=== PATIENT | male | born 1970 | race African-American/Black ===

== ENCOUNTER 2021-10-09 11:35 | Inpatient (IN) | payer OTHER ==
[2021-10-09 13:29] VITALS: BMI 33.0
[2021-10-09] MEDS ORDERED: DICYCLOMINE HCL 10 MG CAPSULE PO PRN (15:30)
[2021-10-09] MEDS ORDERED: IBUPROFEN 400 MG TABLET (FP) PO PRN (15:30)
[2021-10-09] MEDS ORDERED: LOPERAMIDE HCL 2 MG CAPSULE PO PRN (15:30)
[2021-10-09] MEDS ORDERED: MAGNESIUM HYDROX 2400MG/30ML ORAL SUSPENSION 30 ML CUP PO PRN (15:30)
[2021-10-09] MEDS ORDERED: IBUPROFEN 600 MG TABLET (FP) PO PRN (15:30)
[2021-10-09] MEDS ORDERED: ACETAMINOPHEN 325 MG TABLET (FP) PO PRN ×2 (15:30)
[2021-10-09] MEDS ORDERED: MAGNESIUM CITRATE 300 ML BOTTLE PO PRN (15:30)
[2021-10-09] MEDS ORDERED: BENZOCAINE/MENTHOL (CHLORASEPTIC ) LOZENGE MM PRN (15:30)
[2021-10-09] MEDS ORDERED: MAG HYDROX/AL HYDROX/SIMETH 30 ML UNIT-DOSE CUP PO PRN (15:30)
[2021-10-09] MEDS ORDERED: chlordiazePOXIDE HCL 25 MG CAPSULE PO PRN (15:30)
[2021-10-09] MEDS ORDERED: NICOTINE 10 MG CARTRIDGE (INHALER) IH PRN (15:30)
[2021-10-09] MEDS ORDERED: BISMUTH SUBSALICYLATE 524 MG/30 ML PO PRN (15:30)
[2021-10-09] MEDS ORDERED: ONDANSETRON *ODT* 4 MG TABLET SL PRN (15:30)
[2021-10-09] MEDS: NICOTINE 21 MG/24 HOURS TOPICAL PATCH TD SCH (16:07)
[2021-10-09] MEDS: PRENATAL VITAMINS W/ FOLIC ACID TABLET (FP) PO SCH (16:07)
[2021-10-09] MEDS: hydrOXYzine PAMOATE 25 MG CAPSULE (FP) PO SCH ×2 (17:44→23:03)
[2021-10-09] MEDS: chlordiazePOXIDE HCL 25 MG CAPSULE PO SCH ×2 (17:44→23:03)
[2021-10-09] MEDS: MELATONIN 5 MG TABLETS PO SCH (23:03)
[2021-10-09] MEDS: THIAMINE HCL 100 MG TABLET (FP) PO SCH (23:04)
[2021-10-10] MEDS: hydrOXYzine PAMOATE 25 MG CAPSULE (FP) PO SCH ×5 (06:59→23:12)
[2021-10-10] MEDS: chlordiazePOXIDE HCL 25 MG CAPSULE PO SCH ×4 (06:59→23:12)
[2021-10-10 10:03] LABS: HEMATOCRIT 40.1 % (35.4-49); HEMOGLOBIN 13.4 GM/dL (11.7-16.9); MCH 29.2 pg (25.7-33.7); MCHC 33.5 g/dl (32.0-35.9); MEAN CELL VOLUME 87.3 fl (80-96); MEAN PLT VOLUME 7.9 fl (7.5-11.1); PLATELET COUNT 258 10^3/uL (134-434); RBC 4.59 M/mm3 (4.00-5.60); RDW 14.4 % (11.9-15.9); WHITE BLOOD COUNT 6.2 K/mm3 (4.0-10.0)
[2021-10-10] MEDS: PRENATAL VITAMINS W/ FOLIC ACID TABLET (FP) PO SCH (10:21)
[2021-10-10] MEDS: NICOTINE 21 MG/24 HOURS TOPICAL PATCH TD SCH (10:22)
[2021-10-10 12:49] LABS: ALBUMIN 3.1 g/dl (3.4-5.0); BLOOD UREA NITROGEN 11.4 mg/dL (7-18); CALCIUM 8.3 mg/dL (8.5-10.1)
[2021-10-10 12:52] LABS: CREATININE 0.9 mg/dL (0.55-1.3)
[2021-10-10 12:54] LABS: BILIRUBIN,TOTAL 0.1 mg/dL (0.2-1); TOT PROT 6.7 g/dl (6.4-8.2)
[2021-10-10] MEDS: METHOCARBAMOL 500 MG TABLET PO PRN (18:15)
[2021-10-10] MEDS: THIAMINE HCL 100 MG TABLET (FP) PO SCH (23:12)
[2021-10-10] MEDS: MELATONIN 5 MG TABLETS PO SCH (23:12)
[2021-10-11] MEDS: hydrOXYzine PAMOATE 25 MG CAPSULE (FP) PO SCH ×5 (05:18→22:12)
[2021-10-11] MEDS: chlordiazePOXIDE HCL 25 MG CAPSULE PO SCH ×4 (05:18→22:11)
[2021-10-11] MEDS: NICOTINE 21 MG/24 HOURS TOPICAL PATCH TD SCH (10:41)
[2021-10-11] MEDS: METHOCARBAMOL 500 MG TABLET PO PRN (10:42)
[2021-10-11] MEDS: PRENATAL VITAMINS W/ FOLIC ACID TABLET (FP) PO SCH (10:42)
[2021-10-11] MEDS: MELATONIN 5 MG TABLETS PO SCH (22:12)
[2021-10-11] MEDS: THIAMINE HCL 100 MG TABLET (FP) PO SCH (22:15)
[2021-10-12] MEDS ORDERED: chlordiazePOXIDE HCL 10 MG CAPSULE PO PRN
[2021-10-12] MEDS: hydrOXYzine PAMOATE 25 MG CAPSULE (FP) PO SCH ×5 (06:07→22:20)
[2021-10-12] MEDS: chlordiazePOXIDE HCL 10 MG CAPSULE PO SCH ×4 (06:07→22:20)
[2021-10-12] MEDS: NICOTINE 21 MG/24 HOURS TOPICAL PATCH TD SCH (10:20)
[2021-10-12] MEDS: PRENATAL VITAMINS W/ FOLIC ACID TABLET (FP) PO SCH (10:20)
[2021-10-12] MEDS: METHOCARBAMOL 500 MG TABLET PO PRN (10:20)
[2021-10-12] MEDS: THIAMINE HCL 100 MG TABLET (FP) PO SCH (22:20)
[2021-10-12] MEDS: MELATONIN 5 MG TABLETS PO SCH (22:21)
[2021-10-13] MEDS: chlordiazePOXIDE HCL 10 MG CAPSULE PO SCH ×2 (05:37→17:43)
[2021-10-13] MEDS: hydrOXYzine PAMOATE 25 MG CAPSULE (FP) PO SCH ×5 (05:38→22:25)
[2021-10-13] MEDS: PRENATAL VITAMINS W/ FOLIC ACID TABLET (FP) PO SCH (10:30)
[2021-10-13] MEDS: NICOTINE 21 MG/24 HOURS TOPICAL PATCH TD SCH (10:30)
[2021-10-13] MEDS: THIAMINE HCL 100 MG TABLET (FP) PO SCH (22:25)
[2021-10-13] MEDS: MELATONIN 5 MG TABLETS PO SCH (22:25)
[2021-10-14 04:55] VITALS: RESP 18
[2021-10-14] MEDS ORDERED: chlordiazePOXIDE HCL 10 MG CAPSULE PO ONE (05:00)
[2021-10-14] MEDS: hydrOXYzine PAMOATE 25 MG CAPSULE (FP) PO SCH ×2 (05:59→11:11)
[2021-10-14 09:17] VITALS: BP 140/87; PULSE 73; TEMP 97.7
[2021-10-14] MEDS: PRENATAL VITAMINS W/ FOLIC ACID TABLET (FP) PO SCH (11:11)
[2021-10-14] MEDS: NICOTINE 21 MG/24 HOURS TOPICAL PATCH TD SCH (11:12)
== END 2021-10-14 11:30 | disposition other institution (70) | DRG 774 ==
LOC: YASAS 11:35 → Y6N 15:27
PROVIDERS: ADMIT Allergy & Immunology; ATTEND Surgery
PROC: HZ2ZZZZ Detoxification Services for Substance Abuse Treatment (ICD-10-PCS; principal; 2021-10-09)
DX: F10.230 Alcohol dependence with withdrawal, uncomplicated (principal); F14.20 Cocaine dependence, uncomplicated; F12.20 Cannabis dependence, uncomplicated; F17.210 Nicotine dependence, cigarettes, uncomplicated; F19.282 Other psychoactive substance dependence with psychoactive substance-induced sleep disorder; F19.24 Other psychoactive substance dependence with psychoactive substance-induced mood disorder; F41.8 Other specified anxiety disorders
CPT/HCPCS: 36415; 80053; 85027; 86780; C9803-CS; U0003; U0005

== ENCOUNTER 2021-10-14 11:50 | Inpatient (IN) | payer OTHER ==
[~2021-10-14 11:50] MED LIST: ACETAMINOPHEN 325 MG TABLET (FP) PO PRN; LOPERAMIDE HCL 2 MG CAPSULE PO PRN; MAG HYDROX/AL HYDROX/SIMETH 30 ML UNIT-DOSE CUP PO PRN; MAGNESIUM CITRATE 300 ML BOTTLE PO PRN; MAGNESIUM HYDROX 2400MG/30ML ORAL SUSPENSION 30 ML CUP PO PRN; NICOTINE 10 MG CARTRIDGE (INHALER) IH PRN; NICOTINE POLACRILEX 4 MG GUM BUC PRN; P-EPHED 60MG/TRIPROLIDI 2.5MG TABLET PO PRN; guaiFENesin 200 MG/10 ML 10 ML UNIT-DOSE CUPS PO PRN
[2021-10-14] MEDS: MELATONIN 5 MG TABLETS PO SCH (21:34)
[2021-10-14] MEDS: THIAMINE HCL 100 MG TABLET (FP) PO SCH (21:34)
[2021-10-14] MEDS: IBUPROFEN 400 MG TABLET (FP) PO PRN (23:01)
[2021-10-15] MEDS: NICOTINE 21 MG/24 HOURS TOPICAL PATCH TD SCH (09:36)
[2021-10-15] MEDS: PRENATAL VITAMINS W/ FOLIC ACID TABLET (FP) PO SCH (09:36)
[2021-10-15] MEDS: hydrOXYzine PAMOATE 25 MG CAPSULE (FP) PO PRN (09:37)
[2021-10-15] MEDS ORDERED: PNEUMOC 20-VAL CONJ-DIP CRM/PF 0.5 ML SYRINGE IM ONE (12:00)
[2021-10-15] MEDS: IBUPROFEN 400 MG TABLET (FP) PO PRN (17:30)
[2021-10-15] MEDS: THIAMINE HCL 100 MG TABLET (FP) PO SCH (21:15)
[2021-10-15] MEDS: MELATONIN 5 MG TABLETS PO SCH (21:15)
[2021-10-16] MEDS: PRENATAL VITAMINS W/ FOLIC ACID TABLET (FP) PO SCH (10:22)
[2021-10-16] MEDS: NICOTINE 21 MG/24 HOURS TOPICAL PATCH TD SCH (10:23)
[2021-10-16] MEDS: hydrOXYzine PAMOATE 25 MG CAPSULE (FP) PO PRN (10:24)
[2021-10-16] MEDS: SUVOREXANT 10 MG TABLET PO PRN (21:06)
[2021-10-16] MEDS: THIAMINE HCL 100 MG TABLET (FP) PO SCH (21:06)
[2021-10-17] MEDS: hydrOXYzine PAMOATE 25 MG CAPSULE (FP) PO PRN ×2 (06:44→21:25)
[2021-10-17] MEDS: PRENATAL VITAMINS W/ FOLIC ACID TABLET (FP) PO SCH (09:40)
[2021-10-17] MEDS: NICOTINE 21 MG/24 HOURS TOPICAL PATCH TD SCH (09:41)
[2021-10-17] MEDS: NAPROXEN 500 MG TABLET PO SCH ×2 (12:40→21:26)
[2021-10-17] MEDS: SUVOREXANT 10 MG TABLET PO PRN (21:26)
[2021-10-17] MEDS: THIAMINE HCL 100 MG TABLET (FP) PO SCH (21:26)
[2021-10-18 06:33] VITALS: RESP 18
[2021-10-18] MEDS: NICOTINE 21 MG/24 HOURS TOPICAL PATCH TD SCH (09:31)
[2021-10-18] MEDS: PRENATAL VITAMINS W/ FOLIC ACID TABLET (FP) PO SCH (09:31)
[2021-10-18] MEDS: NAPROXEN 500 MG TABLET PO SCH ×2 (09:31→21:12)
[2021-10-18] MEDS: hydrOXYzine PAMOATE 25 MG CAPSULE (FP) PO PRN (21:12)
[2021-10-18] MEDS: THIAMINE HCL 100 MG TABLET (FP) PO SCH (21:12)
[2021-10-18] MEDS: SUVOREXANT 10 MG TABLET PO PRN (21:13)
[2021-10-18] MEDS ORDERED: SUVOREXANT 10 MG TABLET PO PRN (22:00)
[2021-10-19 07:18] VITALS: BP 119/76; PULSE 62; TEMP 97.2
== END 2021-10-19 09:20 | disposition left against medical advice (07) | DRG 770 ==
LOC: YASAS 11:50 → Y3E 11:51
PROVIDERS: ADMIT Allergy & Immunology; ATTEND Psychiatry & Neurology Pain Medicine
PROC: HZ2ZZZZ Detoxification Services for Substance Abuse Treatment (ICD-10-PCS; principal; 2021-10-14)
DX: F10.230 Alcohol dependence with withdrawal, uncomplicated (principal); F14.20 Cocaine dependence, uncomplicated; F12.20 Cannabis dependence, uncomplicated; F17.210 Nicotine dependence, cigarettes, uncomplicated; F19.24 Other psychoactive substance dependence with psychoactive substance-induced mood disorder; F19.282 Other psychoactive substance dependence with psychoactive substance-induced sleep disorder; R60.0 Localized edema; Z56.0 Unemployment, unspecified
CPT/HCPCS: 36415; 86757

== ENCOUNTER 2023-01-16 09:30 | Inpatient (IN) | payer OTHER ==
[2023-01-16] MEDS ORDERED: hydrOXYzine PAMOATE 25 MG CAPSULE (FP) PO PRN (12:50)
[2023-01-16] MEDS ORDERED: NALOXONE HCL (KLOXXADO) 8 MG SPRAY NS PRN (12:50)
[2023-01-16] MEDS ORDERED: COLLOIDAL OATMEAL 1 BAR EACH TP PRN (12:50)
[2023-01-16] MEDS ORDERED: AMMONIUM LACTATE 12% LOTION 225 GM BOTTLE TP PRN (12:50)
[2023-01-16] MEDS ORDERED: NICOTINE POLACRILEX 4 MG GUM BUC PRN (12:50)
[2023-01-16] MEDS ORDERED: NALOXONE HCL 0.4 MG/ML VIAL IM PRN (12:50)
[2023-01-16] MEDS ORDERED: BENZONATATE 200 MG CAPSULE PO PRN (12:50)
[2023-01-16] MEDS ORDERED: MAG HYDROX/AL HYDROX/SIMETH 30 ML UNIT-DOSE CUP PO PRN (12:50)
[2023-01-16] MEDS ORDERED: guaiFENesin 600 MG TABLET.ER (FP) PO PRN (12:50)
[2023-01-16] MEDS ORDERED: LOPERAMIDE HCL 2 MG CAPSULE PO PRN (12:50)
[2023-01-16] MEDS ORDERED: BENZOCAINE/MENTHOL (CHLORASEPTIC ) LOZENGE MM PRN (12:50)
[2023-01-16] MEDS ORDERED: MAGNESIUM HYDROX 2400MG/30ML ORAL SUSPENSION 30 ML CUP PO PRN (12:50)
[2023-01-16] MEDS ORDERED: POLYETHYLENE GLYCOL (HEALTHYLAX) 3350 17 GM PACKET PO PRN (12:50)
[2023-01-16] MEDS ORDERED: TUBERCULIN PPD 5 TU/0.1ML SYRINGE (IN PATIENT USE ONLY) ID ONE (16:55)
[2023-01-16 19:55] LABS: PH,URINE 5.5 (5.0-8.0); URINE APPEARANCE CLEAR; URINE BILIRUBIN NEGATIVE (NEGATIVE); URINE COLOR YELLOW; URINE GLUCOSE (UA) NEGATIVE (NEGATIVE); URINE KETONE TRACE (NEGATIVE); URINE LEUK ESTERASE NEGATIVE (NEGATIVE); URINE NITRITE NEGATIVE (NEGATIVE); URINE PROTEIN TRACE (NEGATIVE)
[2023-01-16] MEDS: THIAMINE HCL 100 MG TABLET (FP) PO SCH (21:06)
[2023-01-16] MEDS: MELATONIN 5 MG TABLETS PO SCH (21:06)
[2023-01-17] MEDS: LITHIUM CARBONATE 300 MG CAPSULE PO SCH (10:02)
[2023-01-17] MEDS: PRENATAL VITAMINS W/ FOLIC ACID TABLET (FP) PO SCH (10:02)
[2023-01-17] MEDS ORDERED: FLU VACCINE (FLULAVAL) PF 60 MCG/0.5 ML SYRINGE 2023-2024 IM ONE (12:00)
[2023-01-17] MEDS ORDERED: PNEUMOC 20-VAL CONJ-DIP CRM/PF 0.5 ML SYRINGE IM ONE (12:00)
[2023-01-17] MEDS: QUEtiapine FUMARATE 100 MG TABLET (FP) PO SCH (21:07)
[2023-01-17] MEDS: MELATONIN 5 MG TABLETS PO SCH (21:07)
[2023-01-17] MEDS: THIAMINE HCL 100 MG TABLET (FP) PO SCH (21:07)
[2023-01-17] MEDS: MIRTAZAPINE 30 MG TABLET PO SCH (21:07)
[2023-01-18] MEDS: LITHIUM CARBONATE 300 MG CAPSULE PO SCH (10:19)
[2023-01-18] MEDS: PRENATAL VITAMINS W/ FOLIC ACID TABLET (FP) PO SCH (10:19)
[2023-01-18 12:37] LABS: CHLORIDE 108 mmol/L (98-107); POTASSIUM 4.3 mmol/L (3.5-5.1); SODIUM 141 mmol/L (136-145)
[2023-01-18 12:37] LABS: HEMATOCRIT 41.7 % (35.4-49); HEMOGLOBIN 13.6 GM/dL (11.7-16.9); MCH 28.1 pg (25.7-33.7); MCHC 32.5 g/dl (32.0-35.9); MEAN CELL VOLUME 86.2 fl (80-96); MEAN PLT VOLUME 8.5 fl (7.5-11.1); PLATELET COUNT 250 10^3/uL (134-434); RBC 4.84 M/mm3 (4.00-5.60); RDW 14.2 % (11.9-15.9); WHITE BLOOD COUNT 7.3 K/mm3 (4.0-10.0)
[2023-01-18 12:39] LABS: CALCIUM 8.4 mg/dL (8.5-10.1)
[2023-01-18 12:40] LABS: ALBUMIN 3.1 g/dl (3.4-5.0); ANION GAP 7 mmol/L (4-13); CO2 26 mmol/L (21-32); GLUCOSE,RANDOM 127 mg/dL (74-106)
[2023-01-18 12:43] LABS: SGOT/AST 16 U/L (15-37); SGPT/ALT 19 U/L (13-61)
[2023-01-18 12:44] LABS: BILIRUBIN,TOTAL 0.5 mg/dL (0.2-1)
[2023-01-18 12:45] LABS: TOT PROT 7.1 g/dl (6.4-8.2)
[2023-01-18 12:46] LABS: ALK PHOS 73 U/L (45-117)
[2023-01-18 13:06] LABS: SYPHILIS W/ RPR CONF NON-REACTIVE (NONREACTIVE)
[2023-01-18] MEDS: THIAMINE HCL 100 MG TABLET (FP) PO SCH (21:03)
[2023-01-18] MEDS: MELATONIN 5 MG TABLETS PO SCH (21:03)
[2023-01-18] MEDS: QUEtiapine FUMARATE 100 MG TABLET (FP) PO SCH (21:03)
[2023-01-18] MEDS: MIRTAZAPINE 30 MG TABLET PO SCH (21:03)
[2023-01-19] MEDS: PRENATAL VITAMINS W/ FOLIC ACID TABLET (FP) PO SCH (09:01)
[2023-01-19] MEDS: IBUPROFEN 600 MG TABLET (FP) PO PRN (09:01)
[2023-01-19] MEDS: LITHIUM CARBONATE 300 MG CAPSULE PO SCH (09:01)
[2023-01-19] MEDS ORDERED: ACETAMINOPHEN 325 MG TABLET (FP) PO PRN (14:14)
[2023-01-19] MEDS: BACLOFEN 10 MG TABLET (FP) PO SCH ×2 (14:50→21:04)
[2023-01-19] MEDS: LIDOCAINE 5% TOPICAL PATCH TP SCH (14:50)
[2023-01-19] MEDS: MELATONIN 5 MG TABLETS PO SCH (21:04)
[2023-01-19] MEDS: THIAMINE HCL 100 MG TABLET (FP) PO SCH (21:04)
[2023-01-19] MEDS: MIRTAZAPINE 30 MG TABLET PO SCH (21:04)
[2023-01-19] MEDS: QUEtiapine FUMARATE 100 MG TABLET (FP) PO SCH (21:04)
[2023-01-19] MEDS: LIDOCAINE PATCH REMOVAL MC SCH (21:05)
[2023-01-20] MEDS: BACLOFEN 10 MG TABLET (FP) PO SCH ×3 (06:43→21:22)
[2023-01-20] MEDS: IBUPROFEN 600 MG TABLET (FP) PO PRN (06:44)
[2023-01-20] MEDS: LIDOCAINE 5% TOPICAL PATCH TP SCH (09:51)
[2023-01-20] MEDS: LITHIUM CARBONATE 300 MG CAPSULE PO SCH (09:51)
[2023-01-20] MEDS: PRENATAL VITAMINS W/ FOLIC ACID TABLET (FP) PO SCH (09:51)
[2023-01-20] MEDS: MELATONIN 5 MG TABLETS PO SCH (21:22)
[2023-01-20] MEDS: QUEtiapine FUMARATE 100 MG TABLET (FP) PO SCH (21:22)
[2023-01-20] MEDS: THIAMINE HCL 100 MG TABLET (FP) PO SCH (21:22)
[2023-01-20] MEDS: MIRTAZAPINE 30 MG TABLET PO SCH (21:22)
[2023-01-20] MEDS: LIDOCAINE PATCH REMOVAL MC SCH (21:23)
[2023-01-21] MEDS: BACLOFEN 10 MG TABLET (FP) PO SCH ×3 (06:38→21:00)
[2023-01-21] MEDS: LIDOCAINE 5% TOPICAL PATCH TP SCH (10:15)
[2023-01-21] MEDS: PRENATAL VITAMINS W/ FOLIC ACID TABLET (FP) PO SCH (10:15)
[2023-01-21] MEDS: LITHIUM CARBONATE 300 MG CAPSULE PO SCH (10:15)
[2023-01-21] MEDS: THIAMINE HCL 100 MG TABLET (FP) PO SCH (21:00)
[2023-01-21] MEDS: MIRTAZAPINE 30 MG TABLET PO SCH (21:00)
[2023-01-21] MEDS: MELATONIN 5 MG TABLETS PO SCH (21:00)
[2023-01-21] MEDS: QUEtiapine FUMARATE 100 MG TABLET (FP) PO SCH (21:00)
[2023-01-21] MEDS: LIDOCAINE PATCH REMOVAL MC SCH (21:01)
[2023-01-22] MEDS: BACLOFEN 10 MG TABLET (FP) PO SCH ×3 (06:19→21:10)
[2023-01-22] MEDS: PRENATAL VITAMINS W/ FOLIC ACID TABLET (FP) PO SCH (10:06)
[2023-01-22] MEDS: LIDOCAINE 5% TOPICAL PATCH TP SCH (10:08)
[2023-01-22] MEDS: LITHIUM CARBONATE 300 MG CAPSULE PO SCH (10:08)
[2023-01-22] MEDS: NICOTINE 21 MG/24 HOURS TOPICAL PATCH TD SCH (12:17)
[2023-01-22] MEDS: QUEtiapine FUMARATE 100 MG TABLET (FP) PO SCH (21:09)
[2023-01-22] MEDS: MIRTAZAPINE 30 MG TABLET PO SCH (21:09)
[2023-01-22] MEDS: THIAMINE HCL 100 MG TABLET (FP) PO SCH (21:09)
[2023-01-22] MEDS: MELATONIN 5 MG TABLETS PO SCH (21:09)
[2023-01-22] MEDS: LIDOCAINE PATCH REMOVAL MC SCH (21:10)
[2023-01-23] MEDS: BACLOFEN 10 MG TABLET (FP) PO SCH ×4 (05:28→21:00)
[2023-01-23] MEDS: NICOTINE 21 MG/24 HOURS TOPICAL PATCH TD SCH (10:27)
[2023-01-23] MEDS: PRENATAL VITAMINS W/ FOLIC ACID TABLET (FP) PO SCH (10:27)
[2023-01-23] MEDS: LITHIUM CARBONATE 300 MG CAPSULE PO SCH (10:27)
[2023-01-23] MEDS: LIDOCAINE 5% TOPICAL PATCH TP SCH (10:28)
[2023-01-23] MEDS: QUEtiapine FUMARATE 100 MG TABLET (FP) PO SCH (21:00)
[2023-01-23] MEDS: MELATONIN 5 MG TABLETS PO SCH (21:00)
[2023-01-23] MEDS: MIRTAZAPINE 30 MG TABLET PO SCH (21:00)
[2023-01-23] MEDS: THIAMINE HCL 100 MG TABLET (FP) PO SCH (21:00)
[2023-01-23] MEDS: LIDOCAINE PATCH REMOVAL MC SCH (21:01)
[2023-01-24] MEDS: BACLOFEN 10 MG TABLET (FP) PO SCH ×3 (06:07→21:31)
[2023-01-24] MEDS: NICOTINE 21 MG/24 HOURS TOPICAL PATCH TD SCH (10:35)
[2023-01-24] MEDS: LITHIUM CARBONATE 300 MG CAPSULE PO SCH (10:35)
[2023-01-24] MEDS: LIDOCAINE 5% TOPICAL PATCH TP SCH (10:36)
[2023-01-24] MEDS: PRENATAL VITAMINS W/ FOLIC ACID TABLET (FP) PO SCH (10:36)
[2023-01-24] MEDS: QUEtiapine FUMARATE 100 MG TABLET (FP) PO SCH (21:31)
[2023-01-24] MEDS: THIAMINE HCL 100 MG TABLET (FP) PO SCH (21:31)
[2023-01-24] MEDS: MELATONIN 5 MG TABLETS PO SCH (21:31)
[2023-01-24] MEDS: MIRTAZAPINE 30 MG TABLET PO SCH (21:31)
[2023-01-24] MEDS: LIDOCAINE PATCH REMOVAL MC SCH (21:31)
[2023-01-25] MEDS: BACLOFEN 10 MG TABLET (FP) PO SCH ×3 (06:36→21:14)
[2023-01-25] MEDS: LIDOCAINE 5% TOPICAL PATCH TP SCH (10:34)
[2023-01-25] MEDS: NICOTINE 21 MG/24 HOURS TOPICAL PATCH TD SCH (10:35)
[2023-01-25] MEDS: PRENATAL VITAMINS W/ FOLIC ACID TABLET (FP) PO SCH (10:35)
[2023-01-25] MEDS: LITHIUM CARBONATE 300 MG CAPSULE PO SCH (10:36)
[2023-01-25] MEDS: MIRTAZAPINE 30 MG TABLET PO SCH (21:13)
[2023-01-25] MEDS: QUEtiapine FUMARATE 100 MG TABLET (FP) PO SCH (21:14)
[2023-01-25] MEDS: MELATONIN 5 MG TABLETS PO SCH (21:14)
[2023-01-25] MEDS: THIAMINE HCL 100 MG TABLET (FP) PO SCH (21:14)
[2023-01-26] MEDS: BACLOFEN 10 MG TABLET (FP) PO SCH ×3 (06:13→21:16)
[2023-01-26] MEDS: LITHIUM CARBONATE 300 MG CAPSULE PO SCH (09:54)
[2023-01-26] MEDS: PRENATAL VITAMINS W/ FOLIC ACID TABLET (FP) PO SCH (09:54)
[2023-01-26] MEDS: NICOTINE 21 MG/24 HOURS TOPICAL PATCH TD SCH (09:55)
[2023-01-26] MEDS: LIDOCAINE 5% TOPICAL PATCH TP SCH (09:55)
[2023-01-26] MEDS: IBUPROFEN 600 MG TABLET (FP) PO PRN ×2 (12:34→21:16)
[2023-01-26] MEDS: THIAMINE HCL 100 MG TABLET (FP) PO SCH (21:16)
[2023-01-26] MEDS: MIRTAZAPINE 30 MG TABLET PO SCH (21:16)
[2023-01-26] MEDS: MELATONIN 5 MG TABLETS PO SCH (21:16)
[2023-01-26] MEDS: QUEtiapine FUMARATE 100 MG TABLET (FP) PO SCH (21:16)
[2023-01-26] MEDS: LIDOCAINE PATCH REMOVAL MC SCH ×2 (21:49)
[2023-01-27] MEDS: IBUPROFEN 600 MG TABLET (FP) PO PRN ×3 (06:23→18:59)
[2023-01-27] MEDS: BACLOFEN 10 MG TABLET (FP) PO SCH ×3 (06:23→21:03)
[2023-01-27] MEDS: PRENATAL VITAMINS W/ FOLIC ACID TABLET (FP) PO SCH (10:42)
[2023-01-27] MEDS: NICOTINE 21 MG/24 HOURS TOPICAL PATCH TD SCH (10:42)
[2023-01-27] MEDS: LITHIUM CARBONATE 300 MG CAPSULE PO SCH (10:43)
[2023-01-27] MEDS: LIDOCAINE 5% TOPICAL PATCH TP SCH (10:43)
[2023-01-27] MEDS: QUEtiapine FUMARATE 100 MG TABLET (FP) PO SCH (21:03)
[2023-01-27] MEDS: MELATONIN 5 MG TABLETS PO SCH (21:03)
[2023-01-27] MEDS: THIAMINE HCL 100 MG TABLET (FP) PO SCH (21:03)
[2023-01-27] MEDS: MIRTAZAPINE 30 MG TABLET PO SCH (21:03)
[2023-01-27] MEDS: LIDOCAINE PATCH REMOVAL MC SCH (21:04)
[2023-01-28] MEDS: IBUPROFEN 600 MG TABLET (FP) PO PRN ×3 (06:11→18:52)
[2023-01-28] MEDS: BACLOFEN 10 MG TABLET (FP) PO SCH ×3 (06:11→21:29)
[2023-01-28] MEDS: PRENATAL VITAMINS W/ FOLIC ACID TABLET (FP) PO SCH (09:48)
[2023-01-28] MEDS: LITHIUM CARBONATE 300 MG CAPSULE PO SCH (09:48)
[2023-01-28] MEDS: NICOTINE 21 MG/24 HOURS TOPICAL PATCH TD SCH (09:48)
[2023-01-28] MEDS: LIDOCAINE 5% TOPICAL PATCH TP SCH (09:49)
[2023-01-28] MEDS ORDERED: SODIUM CHLORIDE NASAL SPRAY 44 ML BOTTLE NS PRN (15:48)
[2023-01-28] MEDS: AMOX TR/POT CLAV 875MG/125MG TABLETS (FP) PO SCH (16:31)
[2023-01-28] MEDS: LIDOCAINE PATCH REMOVAL MC SCH (21:29)
[2023-01-28] MEDS: MELATONIN 5 MG TABLETS PO SCH (21:29)
[2023-01-28] MEDS: MIRTAZAPINE 30 MG TABLET PO SCH (21:29)
[2023-01-28] MEDS: QUEtiapine FUMARATE 100 MG TABLET (FP) PO SCH (21:29)
[2023-01-28] MEDS: THIAMINE HCL 100 MG TABLET (FP) PO SCH (21:29)
[2023-01-29] MEDS: BACLOFEN 10 MG TABLET (FP) PO SCH ×3 (06:33→21:15)
[2023-01-29] MEDS: IBUPROFEN 600 MG TABLET (FP) PO PRN ×3 (06:34→18:33)
[2023-01-29] MEDS: AMOX TR/POT CLAV 875MG/125MG TABLETS (FP) PO SCH ×2 (07:06→17:16)
[2023-01-29] MEDS: PRENATAL VITAMINS W/ FOLIC ACID TABLET (FP) PO SCH (10:23)
[2023-01-29] MEDS: LITHIUM CARBONATE 300 MG CAPSULE PO SCH (10:23)
[2023-01-29] MEDS: NICOTINE 21 MG/24 HOURS TOPICAL PATCH TD SCH (10:23)
[2023-01-29] MEDS: LIDOCAINE 5% TOPICAL PATCH TP SCH (10:23)
[2023-01-29] MEDS: QUEtiapine FUMARATE 100 MG TABLET (FP) PO SCH (21:15)
[2023-01-29] MEDS: THIAMINE HCL 100 MG TABLET (FP) PO SCH (21:15)
[2023-01-29] MEDS: MIRTAZAPINE 30 MG TABLET PO SCH (21:15)
[2023-01-29] MEDS: MELATONIN 5 MG TABLETS PO SCH (21:15)
[2023-01-29] MEDS: LIDOCAINE PATCH REMOVAL MC SCH (21:16)
[2023-01-30] MEDS: BACLOFEN 10 MG TABLET (FP) PO SCH ×3 (06:16→21:17)
[2023-01-30] MEDS: IBUPROFEN 600 MG TABLET (FP) PO PRN ×3 (06:16→17:20)
[2023-01-30] MEDS: AMOX TR/POT CLAV 875MG/125MG TABLETS (FP) PO SCH ×2 (07:05→17:19)
[2023-01-30] MEDS: NICOTINE 21 MG/24 HOURS TOPICAL PATCH TD SCH (09:04)
[2023-01-30] MEDS: LITHIUM CARBONATE 300 MG CAPSULE PO SCH (09:04)
[2023-01-30] MEDS: PRENATAL VITAMINS W/ FOLIC ACID TABLET (FP) PO SCH (09:04)
[2023-01-30] MEDS: LIDOCAINE 5% TOPICAL PATCH TP SCH (09:05)
[2023-01-30] MEDS: ACETAMINOPHEN 325 MG TABLET (FP) PO PRN (12:11)
[2023-01-30] MEDS: QUEtiapine FUMARATE 100 MG TABLET (FP) PO SCH (21:17)
[2023-01-30] MEDS: MELATONIN 5 MG TABLETS PO SCH (21:17)
[2023-01-30] MEDS: MIRTAZAPINE 30 MG TABLET PO SCH (21:17)
[2023-01-30] MEDS: THIAMINE HCL 100 MG TABLET (FP) PO SCH (21:17)
[2023-01-30] MEDS: LIDOCAINE PATCH REMOVAL MC SCH (21:18)
[2023-01-31] MEDS: IBUPROFEN 600 MG TABLET (FP) PO PRN ×2 (05:58→18:02)
[2023-01-31] MEDS: BACLOFEN 10 MG TABLET (FP) PO SCH ×3 (05:59→21:51)
[2023-01-31] MEDS: AMOX TR/POT CLAV 875MG/125MG TABLETS (FP) PO SCH ×2 (07:01→17:57)
[2023-01-31] MEDS: PRENATAL VITAMINS W/ FOLIC ACID TABLET (FP) PO SCH (09:47)
[2023-01-31] MEDS: LIDOCAINE 5% TOPICAL PATCH TP SCH (09:47)
[2023-01-31] MEDS: NICOTINE 21 MG/24 HOURS TOPICAL PATCH TD SCH (09:47)
[2023-01-31] MEDS: LITHIUM CARBONATE 300 MG CAPSULE PO SCH (09:47)
[2023-01-31] MEDS: ACETAMINOPHEN 325 MG TABLET (FP) PO PRN (13:22)
[2023-01-31] MEDS: LIDOCAINE PATCH REMOVAL MC SCH (21:25)
[2023-01-31] MEDS: MIRTAZAPINE 30 MG TABLET PO SCH (21:25)
[2023-01-31] MEDS: MELATONIN 5 MG TABLETS PO SCH (21:26)
[2023-01-31] MEDS: QUEtiapine FUMARATE 100 MG TABLET (FP) PO SCH (21:26)
[2023-01-31] MEDS: THIAMINE HCL 100 MG TABLET (FP) PO SCH (21:26)
[2023-02-01] MEDS: IBUPROFEN 400 MG TABLET (FP) PO PRN (06:33)
[2023-02-01] MEDS: BACLOFEN 10 MG TABLET (FP) PO SCH ×3 (06:33→21:08)
[2023-02-01] MEDS: AMOX TR/POT CLAV 875MG/125MG TABLETS (FP) PO SCH ×2 (07:06→16:32)
[2023-02-01] MEDS: NICOTINE 21 MG/24 HOURS TOPICAL PATCH TD SCH (09:54)
[2023-02-01] MEDS: LIDOCAINE 5% TOPICAL PATCH TP SCH (09:54)
[2023-02-01] MEDS: LITHIUM CARBONATE 300 MG CAPSULE PO SCH (09:54)
[2023-02-01] MEDS: PRENATAL VITAMINS W/ FOLIC ACID TABLET (FP) PO SCH (09:54)
[2023-02-01] MEDS: IBUPROFEN 600 MG TABLET (FP) PO PRN ×2 (13:01→21:08)
[2023-02-01] MEDS: THIAMINE HCL 100 MG TABLET (FP) PO SCH (21:08)
[2023-02-01] MEDS: MIRTAZAPINE 30 MG TABLET PO SCH (21:08)
[2023-02-01] MEDS: MELATONIN 5 MG TABLETS PO SCH (21:08)
[2023-02-01] MEDS: QUEtiapine FUMARATE 100 MG TABLET (FP) PO SCH (21:08)
[2023-02-01] MEDS: LIDOCAINE PATCH REMOVAL MC SCH (21:28)
[2023-02-02] MEDS: BACLOFEN 10 MG TABLET (FP) PO SCH ×3 (06:31→21:28)
[2023-02-02] MEDS: AMOX TR/POT CLAV 875MG/125MG TABLETS (FP) PO SCH ×2 (07:05→16:31)
[2023-02-02] MEDS: LITHIUM CARBONATE 300 MG CAPSULE PO SCH (09:49)
[2023-02-02] MEDS: IBUPROFEN 600 MG TABLET (FP) PO PRN ×2 (09:49→16:27)
[2023-02-02] MEDS: PRENATAL VITAMINS W/ FOLIC ACID TABLET (FP) PO SCH (09:49)
[2023-02-02] MEDS: LIDOCAINE 5% TOPICAL PATCH TP SCH (09:50)
[2023-02-02] MEDS: NICOTINE 21 MG/24 HOURS TOPICAL PATCH TD SCH (09:50)
[2023-02-02] MEDS: QUEtiapine FUMARATE 100 MG TABLET (FP) PO SCH (21:28)
[2023-02-02] MEDS: MIRTAZAPINE 30 MG TABLET PO SCH (21:28)
[2023-02-02] MEDS: MELATONIN 5 MG TABLETS PO SCH (21:29)
[2023-02-02] MEDS: THIAMINE HCL 100 MG TABLET (FP) PO SCH (21:29)
[2023-02-02] MEDS: IBUPROFEN 400 MG TABLET (FP) PO PRN (21:30)
[2023-02-02] MEDS: LIDOCAINE PATCH REMOVAL MC SCH (21:50)
[2023-02-03] MEDS: IBUPROFEN 600 MG TABLET (FP) PO PRN ×3 (06:25→21:22)
[2023-02-03] MEDS: BACLOFEN 10 MG TABLET (FP) PO SCH ×3 (06:25→21:22)
[2023-02-03] MEDS: AMOX TR/POT CLAV 875MG/125MG TABLETS (FP) PO SCH ×2 (07:02→17:05)
[2023-02-03] MEDS: NICOTINE 21 MG/24 HOURS TOPICAL PATCH TD SCH (10:11)
[2023-02-03] MEDS: LIDOCAINE 5% TOPICAL PATCH TP SCH (10:12)
[2023-02-03] MEDS: LITHIUM CARBONATE 300 MG CAPSULE PO SCH (10:12)
[2023-02-03] MEDS: PRENATAL VITAMINS W/ FOLIC ACID TABLET (FP) PO SCH (10:12)
[2023-02-03] MEDS: MELATONIN 5 MG TABLETS PO SCH (21:21)
[2023-02-03] MEDS: QUEtiapine FUMARATE 100 MG TABLET (FP) PO SCH (21:22)
[2023-02-03] MEDS: THIAMINE HCL 100 MG TABLET (FP) PO SCH (21:22)
[2023-02-03] MEDS: MIRTAZAPINE 30 MG TABLET PO SCH (21:22)
[2023-02-03] MEDS: LIDOCAINE PATCH REMOVAL MC SCH (21:23)
[2023-02-04] MEDS: BACLOFEN 10 MG TABLET (FP) PO SCH ×3 (06:53→21:14)
[2023-02-04] MEDS: IBUPROFEN 600 MG TABLET (FP) PO PRN ×3 (06:53→19:06)
[2023-02-04] MEDS: AMOX TR/POT CLAV 875MG/125MG TABLETS (FP) PO SCH ×2 (07:12→16:30)
[2023-02-04] MEDS: LITHIUM CARBONATE 300 MG CAPSULE PO SCH (09:55)
[2023-02-04] MEDS: LIDOCAINE 5% TOPICAL PATCH TP SCH (09:55)
[2023-02-04] MEDS: NICOTINE 21 MG/24 HOURS TOPICAL PATCH TD SCH (09:55)
[2023-02-04] MEDS: PRENATAL VITAMINS W/ FOLIC ACID TABLET (FP) PO SCH (09:55)
[2023-02-04] MEDS: LIDOCAINE PATCH REMOVAL MC SCH (21:14)
[2023-02-04] MEDS: THIAMINE HCL 100 MG TABLET (FP) PO SCH (21:14)
[2023-02-04] MEDS: MELATONIN 5 MG TABLETS PO SCH (21:14)
[2023-02-04] MEDS: MIRTAZAPINE 30 MG TABLET PO SCH (21:14)
[2023-02-04] MEDS: QUEtiapine FUMARATE 100 MG TABLET (FP) PO SCH (21:14)
[2023-02-05] MEDS: BACLOFEN 10 MG TABLET (FP) PO SCH ×3 (06:17→21:27)
[2023-02-05] MEDS: IBUPROFEN 600 MG TABLET (FP) PO PRN ×3 (06:18→18:07)
[2023-02-05] MEDS: AMOX TR/POT CLAV 875MG/125MG TABLETS (FP) PO SCH ×2 (07:01→18:08)
[2023-02-05] MEDS: LITHIUM CARBONATE 300 MG CAPSULE PO SCH (09:45)
[2023-02-05] MEDS: LIDOCAINE 5% TOPICAL PATCH TP SCH (09:45)
[2023-02-05] MEDS: PRENATAL VITAMINS W/ FOLIC ACID TABLET (FP) PO SCH (09:45)
[2023-02-05] MEDS: NICOTINE 21 MG/24 HOURS TOPICAL PATCH TD SCH (09:45)
[2023-02-05] MEDS: QUEtiapine FUMARATE 100 MG TABLET (FP) PO SCH (21:26)
[2023-02-05] MEDS: MELATONIN 5 MG TABLETS PO SCH (21:26)
[2023-02-05] MEDS: THIAMINE HCL 100 MG TABLET (FP) PO SCH (21:26)
[2023-02-05] MEDS: LIDOCAINE PATCH REMOVAL MC SCH (21:27)
[2023-02-05] MEDS: MIRTAZAPINE 30 MG TABLET PO SCH (21:27)
[2023-02-06] MEDS: BACLOFEN 10 MG TABLET (FP) PO SCH ×3 (06:23→21:11)
[2023-02-06] MEDS: IBUPROFEN 600 MG TABLET (FP) PO PRN ×3 (06:23→18:14)
[2023-02-06] MEDS: AMOX TR/POT CLAV 875MG/125MG TABLETS (FP) PO SCH ×2 (07:09→17:17)
[2023-02-06] MEDS: PRENATAL VITAMINS W/ FOLIC ACID TABLET (FP) PO SCH (10:43)
[2023-02-06] MEDS: NICOTINE 21 MG/24 HOURS TOPICAL PATCH TD SCH (10:43)
[2023-02-06] MEDS: LITHIUM CARBONATE 300 MG CAPSULE PO SCH (10:43)
[2023-02-06] MEDS: LIDOCAINE 5% TOPICAL PATCH TP SCH (10:44)
[2023-02-06] MEDS: MELATONIN 5 MG TABLETS PO SCH (21:11)
[2023-02-06] MEDS: THIAMINE HCL 100 MG TABLET (FP) PO SCH (21:11)
[2023-02-06] MEDS: LIDOCAINE PATCH REMOVAL MC SCH (21:11)
[2023-02-06] MEDS: MIRTAZAPINE 30 MG TABLET PO SCH (21:11)
[2023-02-06] MEDS: QUEtiapine FUMARATE 100 MG TABLET (FP) PO SCH (21:11)
[2023-02-07] MEDS: IBUPROFEN 600 MG TABLET (FP) PO PRN ×2 (00:26→06:18)
[2023-02-07] MEDS: BACLOFEN 10 MG TABLET (FP) PO SCH ×3 (06:17→21:49)
[2023-02-07 07:06] VITALS: TEMP 97.7
[2023-02-07] MEDS: AMOX TR/POT CLAV 875MG/125MG TABLETS (FP) PO SCH ×2 (07:12→17:30)
[2023-02-07] MEDS: LIDOCAINE 5% TOPICAL PATCH TP SCH (10:05)
[2023-02-07] MEDS: PRENATAL VITAMINS W/ FOLIC ACID TABLET (FP) PO SCH (10:05)
[2023-02-07] MEDS: LITHIUM CARBONATE 300 MG CAPSULE PO SCH (10:05)
[2023-02-07] MEDS: NICOTINE 21 MG/24 HOURS TOPICAL PATCH TD SCH (10:06)
[2023-02-07] MEDS: ACETAMINOPHEN 325 MG TABLET (FP) PO PRN (13:28)
[2023-02-07] MEDS: IBUPROFEN 400 MG TABLET (FP) PO PRN (18:38)
[2023-02-07] MEDS: LIDOCAINE PATCH REMOVAL MC SCH (21:49)
[2023-02-07] MEDS: MELATONIN 5 MG TABLETS PO SCH (21:49)
[2023-02-07] MEDS: THIAMINE HCL 100 MG TABLET (FP) PO SCH (21:49)
[2023-02-07] MEDS: MIRTAZAPINE 30 MG TABLET PO SCH (21:49)
[2023-02-07] MEDS: QUEtiapine FUMARATE 100 MG TABLET (FP) PO SCH (21:49)
[2023-02-08] MEDS: BACLOFEN 10 MG TABLET (FP) PO SCH ×3 (06:23→21:19)
[2023-02-08] MEDS: IBUPROFEN 600 MG TABLET (FP) PO PRN ×2 (06:24→15:08)
[2023-02-08] MEDS: LITHIUM CARBONATE 300 MG CAPSULE PO SCH (09:56)
[2023-02-08] MEDS: PRENATAL VITAMINS W/ FOLIC ACID TABLET (FP) PO SCH (09:56)
[2023-02-08] MEDS: ACETAMINOPHEN 325 MG TABLET (FP) PO PRN (09:57)
[2023-02-08] MEDS: LIDOCAINE 5% TOPICAL PATCH TP SCH (09:57)
[2023-02-08] MEDS: NICOTINE 21 MG/24 HOURS TOPICAL PATCH TD SCH (09:58)
[2023-02-08] MEDS: IBUPROFEN 400 MG TABLET (FP) PO PRN (19:55)
[2023-02-08] MEDS: THIAMINE HCL 100 MG TABLET (FP) PO SCH (21:19)
[2023-02-08] MEDS: QUEtiapine FUMARATE 100 MG TABLET (FP) PO SCH (21:19)
[2023-02-08] MEDS: MELATONIN 5 MG TABLETS PO SCH (21:19)
[2023-02-08] MEDS: MIRTAZAPINE 30 MG TABLET PO SCH (21:20)
[2023-02-08] MEDS: LIDOCAINE PATCH REMOVAL MC SCH (21:20)
[2023-02-09] MEDS: IBUPROFEN 600 MG TABLET (FP) PO PRN ×2 (06:31→09:31)
[2023-02-09] MEDS: BACLOFEN 10 MG TABLET (FP) PO SCH (06:31)
[2023-02-09 07:24] VITALS: BP 126/87; PULSE 82; RESP 17
[2023-02-09] MEDS: PRENATAL VITAMINS W/ FOLIC ACID TABLET (FP) PO SCH (09:30)
[2023-02-09] MEDS: LITHIUM CARBONATE 300 MG CAPSULE PO SCH (09:30)
[2023-02-09] MEDS: LIDOCAINE 5% TOPICAL PATCH TP SCH (09:31)
[2023-02-09] MEDS: NICOTINE 21 MG/24 HOURS TOPICAL PATCH TD SCH (09:31)
== END 2023-02-09 09:45 | disposition home or self-care (01) | DRG 772 ==
LOC: YASAS 09:30 → Y3W 15:44
PROVIDERS: ADMIT Allergy & Immunology; ATTEND Psychiatry & Neurology Pain Medicine
PROC: HZ42ZZZ Group Counseling for Substance Abuse Treatment, Cognitive-Behavioral (ICD-10-PCS; principal; 2023-01-16)
DX: F11.20 Opioid dependence, uncomplicated (principal); F14.20 Cocaine dependence, uncomplicated; F12.20 Cannabis dependence, uncomplicated; F17.210 Nicotine dependence, cigarettes, uncomplicated; F31.9 Bipolar disorder, unspecified; F19.282 Other psychoactive substance dependence with psychoactive substance-induced sleep disorder; F19.24 Other psychoactive substance dependence with psychoactive substance-induced mood disorder; F39 Unspecified mood [affective] disorder; J32.0 Chronic maxillary sinusitis; K02.9 Dental caries, unspecified; M54.50 Low back pain, unspecified; G89.29 Other chronic pain
CPT/HCPCS: 36415; 71046-TC-FY; 80053; 80178; 80307; 81003; 82962; 85027; 86780; 86803; 87635; 87811; 90677; 90686; 93005; 93010; G0008; J0475